=== PATIENT | female | born 1985 | race Caucasian/White ===

== ENCOUNTER → 2016-08-01 | Outpatient (CLI) | payer BC ==
--- NOTE | 2016-08-01 13:21 | DIAGNOSTIC IMAGING REPORT ---
PROCEDURE: US COMPLETE PELVIC W/TRANSVAG INDICATION: OVARIAN CYST TECHNIQUE: Transabdominal and endovaginal packer scale and color Doppler sonographic images of the female pelvis were obtained. COMPARISON: None. FINDINGS: TRANSABDOMINAL SCANS: Kidneys are unremarkable. TRANSVAGINAL SCANS: Retroverted uterus measures 6 x 5.4 x 2.9 cm. Nabothian cyst. Myometrium is unremarkable. Normal endometrium measures 5 mm. Right ovary measures 2.8 x 2.2 x 2 cm with small peripheral follicles. Left ovary measures 5.2 x 2.2 x 2.4 cm with a 2.8 cm septated cyst. Vascular flow to both ovaries. No adnexal mass or free fluid the cul-de-sac. IMPRESSION: 1. 2.8 cm septated left ovarian cyst. Recommend follow-up ultrasound in 2 to 3 months.
== END ==
LOC: US SRH 10:49
DX: N83.292 Other ovarian cyst, left side (principal)